=== PATIENT | female | born 1950 | race Caucasian/White ===

== ENCOUNTER → 2019-03-10 | Outpatient (CLI) | payer MEDICARE ==
[~2019-03-10] MED LIST: GABA600 PO; Zestril40 MG
== END | disposition home or self-care (01) ==
LOC: LAB EV 16:19 → LAB SHORT 16:19
DX: N39.0 Urinary tract infection, site not specified (principal)
CPT/HCPCS: 87086

== ENCOUNTER → 2020-02-03 | Outpatient (CLI) | payer MEDICARE ==
[~2020-02-03] MED LIST changes: +CLIMARA1 EACH; +Cymbalta30 MG; +Depakote ER500 MG PO; +TOPI15C
[2020-02-03 10:54] LABS: BASOPHILS ABSOLUTE AUTO 0.06 K/mm3 (0.00-0.23); BASOPHILS PERCENT AUTO 1 % (0-2); EOSINOPHILS ABSOLUTE AUTO 0.21 K/mm3 (0.00-0.68); EOSINOPHILS PERCENT AUTO 2 % (0-6); Hematocrit 38.4 % (33.0-51.0); Hemoglobin 12.6 g/dL (11.5-16.0); IMMATURE GRAN ABSOLUTE AUTO 0.03 K/mm3 (0.00-0.10); IMMATURE GRAN PERCENT AUTO 0 % (0-1); LYMPHOCYTES ABSOLUTE AUTO 1.02 K/mm3 (0.84-5.20); LYMPHOCYTES PERCENT AUTO 12 % (21-46); MONOCYTES ABSOLUTE AUTO 0.67 K/mm3 (0.16-1.47); MONOCYTES PERCENT AUTO 8 % (4-13); Mean Corpuscular HGB 31.6 pg (26.0-34.0); Mean Corpuscular HGB Conc 32.8 g/dL (31.5-36.5); Mean Corpuscular Volume 96 fL (80-100); NEUTROPHILS ABSOLUTE AUTO 6.65 K/mm3 (1.96-9.15); NEUTROPHILS PERCENT AUTO 77 % (41-73); Platelet Count 255 K/mm3 (150-400); RDW Coefficient Variation 13.4 % (11.7-14.2); RDW Standard Deviation 47.2 fL (35.1-46.3); Red Blood Cell Count 3.99 M/mm3 (3.80-5.20); White Blood Cell Count 8.64 K/mm3 (4.00-11.30)
== END ==
LOC: LAB EV 10:47 → LAB SHORT 10:47
PROVIDERS: Family Medicine
DX: K92.1 Melena (principal)
CPT/HCPCS: 85025

== ENCOUNTER 2020-06-20 12:08 | Day surgery (SDC) | payer OTHER ==
[~2020-06-20] VITALS: Ht 154.9 cm; Wt 87.7 kg
[~2020-06-20 12:08] MED LIST changes: +Aspir 8181 MG; +Aspir 8181 MG PO; +CYMBALTA60 M1 PO; +ESTRADIOL2 MG PO; +Gabapentin600 MG PO; +Natrol Alpha 3300 MG; +Natrol Alpha 3300 MG PO; +OMEP20ER; +OMEP20ER PO
--- NOTE | 2020-06-20 12:46 | NUR ---
06/20/20 Bijan6 T[place] Mary 1 TRY RIGHT HAND BLEW
== END 2020-06-20 13:52 | disposition home or self-care (01) ==
LOC: ORSCSDS 12:08
PROVIDERS: Internal Medicine Gastroenterology
PROC: 0DBH8ZX Excision of Cecum, Via Natural or Artificial Opening Endoscopic, Diagnostic (ICD-10-PCS; principal; 2020-06-20 13:30)
DX: K62.5 Hemorrhage of anus and rectum (principal); K59.1 Functional diarrhea; D12.0 Benign neoplasm of cecum; K57.30 Diverticulosis of large intestine without perforation or abscess without bleeding; K64.8 Other hemorrhoids; G47.30 Sleep apnea, unspecified; G47.33 Obstructive sleep apnea (adult) (pediatric); K21.9 Gastro-esophageal reflux disease without esophagitis; E66.01 Morbid (severe) obesity due to excess calories; Z68.36 Body mass index [BMI] 36.0-36.9, adult; Z79.82 Long term (current) use of aspirin; Z79.899 Other long term (current) drug therapy
CPT/HCPCS: 88305; J2704; J7120

== ENCOUNTER 2020-11-01 11:36 | Emergency (ER) | payer OTHER ==
[~2020-11-01] VITALS: Ht 152.4 cm; Wt 86.6 kg
[2020-11-01 14:09] LABS: BASOPHILS ABSOLUTE AUTO 0.07 K/mm3 (0.00-0.23); BASOPHILS PERCENT AUTO 1 % (0-2); EOSINOPHILS ABSOLUTE AUTO 0.06 K/mm3 (0.00-0.68); EOSINOPHILS PERCENT AUTO 1 % (0-6); Hematocrit 45.7 % (33.0-51.0); Hemoglobin 14.7 g/dL (11.5-16.0); IMMATURE GRAN ABSOLUTE AUTO 0.07 K/mm3 (0.00-0.10); IMMATURE GRAN PERCENT AUTO 1 % (0-1); LYMPHOCYTES ABSOLUTE AUTO 0.64 K/mm3 (0.84-5.20); LYMPHOCYTES PERCENT AUTO 5 % (21-46); MONOCYTES ABSOLUTE AUTO 0.75 K/mm3 (0.16-1.47); MONOCYTES PERCENT AUTO 6 % (4-13); Mean Corpuscular HGB 29.6 pg (26.0-34.0); Mean Corpuscular HGB Conc 32.2 g/dL (31.5-36.5); Mean Corpuscular Volume 92 fL (80-100); Mean Platelet Volume 10.4 fL (9.1-12.4); NEUTROPHILS ABSOLUTE AUTO 11.03 K/mm3 (1.96-9.15); NEUTROPHILS PERCENT AUTO 87 % (41-73); Platelet Count 220 K/mm3 (150-400); RDW Coefficient Variation 13.4 % (11.7-14.2); RDW Standard Deviation 45.7 fL (35.1-46.3); Red Blood Cell Count 4.97 M/mm3 (3.80-5.20); White Blood Cell Count 12.62 K/mm3 (4.00-11.30)
[2020-11-01 14:25] LABS: Source, Urine Voided
[2020-11-01 14:26] LABS: Alanine Aminotransfer (ALT/SGP 23 U/L (12-78); Albumin, Blood 3.9 g/dL (3.4-5.0); Alk Phos 103 U/L (50-136); Anion Gap 8 mmol/L (6-16); Aspartate Aminotrans (AST/SGOT 13 U/L (12-37); Bilirubin, Total 0.6 mg/dL (0.1-1.0); Blood Urea Nitrogen 19 mg/dL (8-24); Bun/Creatinine Ratio 20.8 (12.0-20.0); CO2, Blood 24 mmol/L (21-32); Calcium, Blood 9.8 mg/dL (8.5-10.1); Chloride, Blood 106 mmol/L (98-108); Creatinine, Blood 0.92 mg/dL (0.40-1.00); Globulin, Blood 4.1 g/dL (2.2-4.0); Glomerular Filtration Rate >60 (60-); Glucose, Blood 115 mg/dL (70-99); Potassium, Blood 4.6 mmol/L (3.5-5.5); Sodium, Blood 138 mmol/L (136-145)
[2020-11-01 14:43] LABS: Appearance, Urine Hazy (Clear); Bilirubin, Urine Neg (Neg); Blood, Urine Neg (Neg); Color, Urine Yellow (P-Yellow); Glucose Qualitative, Urine Neg (Neg); Ketones, Urine 1+ (Neg); Leukocyte Esterase, Urine Neg (Neg); Nitrite, Urine Neg (Neg); Protein, Urine Neg (Neg); Specific Gravity, Urine 1.015 (1.003-1.022); Urobilinogen, Urine NORM (Normal)
[2020-11-01 15:00] LABS: Bacteria Many /hpf; Squamous Epithelial Cells Mod /hpf (Few)
[2020-11-01] MEDS ORDERED: LOPE2C PO (15:52)
[2020-11-01] MEDS ORDERED: ONDA4ODT MM (15:52)
== END 2020-11-01 16:15 | disposition home or self-care (01) ==
LOC: ER 11:36
PROVIDERS: Emergency Medicine
DX: K31.84 Gastroparesis (principal); I10 Essential (primary) hypertension; Z79.899 Other long term (current) drug therapy
CPT/HCPCS: 36415; 80053; 81001; 83690; 85025; 87086; 93005; 93010; 96374; 99284-25; A9270; J2405; J7030

== ENCOUNTER 2021-03-05 11:14 | Day surgery (SDC) | payer OTHER ==
[~2021-03-05] VITALS: Ht 154.9 cm; Wt 85.2 kg
[~2021-03-05 11:14] MED LIST changes: +ATEN25 PO; +CELE200 PO; +LISI20 PO; +LOPE2C PO; +MELO7.5 PO; +ONDA4ODT MM
--- NOTE | 2021-03-05 18:06 | NUR ---
SHIFT SUMMARY PT A&OX4, VSS/2LNC, S/P L TKA, AQUACEL/ACEWRAP DRY/INTACT, WIGGLES TOES/MOVES FEET, DENIES N&T. PAIN MANAGED WITH 5 MG OXY AND TORADOL. ELYSE PO. AWAITING POST OP VOID. IV RFA, IVF @ 70 MLS/HR. WILL REPORT TO ONCOMING ROXANNA LEE.
[2021-03-06 03:48] LABS: BASOPHILS ABSOLUTE AUTO 0.01 K/mm3 (0.00-0.23); BASOPHILS PERCENT AUTO 0 % (0-2); EOSINOPHILS PERCENT AUTO 0 % (0-6); Hematocrit 32.9 % (33.0-51.0); Hemoglobin 10.4 g/dL (11.5-16.0); IMMATURE GRAN ABSOLUTE AUTO 0.04 K/mm3 (0.00-0.10); IMMATURE GRAN PERCENT AUTO 0 % (0-1); LYMPHOCYTES ABSOLUTE AUTO 0.82 K/mm3 (0.84-5.20); LYMPHOCYTES PERCENT AUTO 8 % (21-46); MONOCYTES ABSOLUTE AUTO 0.38 K/mm3 (0.16-1.47); MONOCYTES PERCENT AUTO 4 % (4-13); Mean Corpuscular HGB 29.5 pg (26.0-34.0); Mean Corpuscular HGB Conc 31.6 g/dL (31.5-36.5); Mean Corpuscular Volume 94 fL (80-100); Mean Platelet Volume 9.7 fL (9.1-12.4); NEUTROPHILS ABSOLUTE AUTO 8.51 K/mm3 (1.96-9.15); NEUTROPHILS PERCENT AUTO 87 % (41-73); Platelet Count 231 K/mm3 (150-400); RDW Coefficient Variation 12.7 % (11.7-14.2); RDW Standard Deviation 43.7 fL (35.1-46.3); Red Blood Cell Count 3.52 M/mm3 (3.80-5.20); White Blood Cell Count 9.76 K/mm3 (4.00-11.30)
[2021-03-06 04:10] LABS: Anion Gap 4 mmol/L (6-16); Blood Urea Nitrogen 23 mg/dL (8-24); Bun/Creatinine Ratio 27.3 (12.0-20.0); CO2, Blood 27 mmol/L (21-32); Calcium, Blood 8.9 mg/dL (8.5-10.1); Chloride, Blood 103 mmol/L (98-108); Creatinine, Blood 0.84 mg/dL (0.40-1.00); Glomerular Filtration Rate >60 (60-); Glucose, Blood 131 mg/dL (70-99); Sodium, Blood 134 mmol/L (136-145)
--- NOTE | 2021-03-06 04:24 | NUR ---
SHIFT SUMMARY PT A&OX4 AND IN PLEASENT MOOD T/O SHIFT. POD1 L TKA. PAIN MANAGED PER EMAR AND POLAR PACK IN PLACE. KATHIA BANDAGE AND AQUACEL CDI. PPP. VS STABLE. TOLERATING PO INTAKE AND VOIDING WELL. VERY STEADY GAIT W/ AMBULATION. CALL LIGHT W/IN REACH. SCD'S IN PLACE.
[2021-03-06] MEDS ORDERED: Percocet 5-3251 EACH PO (08:42)
[2021-03-06] MEDS ORDERED: Aspir 8181 MG PO (08:43)
--- NOTE | 2021-03-06 12:05 | NUR ---
DISCHARGE CLEARED THERAPY, PAIN WELL MANAGED, EATING/DRINKING/VOIDING WELL. SCRIPT, POLLAR PACK, & DRSGS SENT w/ PT. ESCORTED OUT VIA W/C TO FRIEND WAITING IN CAR.
--- NOTE | 2021-03-07 09:03 | NUR ---
03/07/21 0903 Nadira Shell VERIFICATIONS: EDIT CHART.
== END 2021-03-06 12:10 | disposition home or self-care (01) ==
LOC: ORSCMMR 11:14 → SURS 16:05 → ORSCMMR 03-06 12:10
PROVIDERS: Orthopaedic Surgery
PROC: 0SRD0JA Replacement of Left Knee Joint with Synthetic Substitute, Uncemented, Open Approach (ICD-10-PCS; principal; 2021-03-05 12:45)
PROC: 8E0Y0CZ Robotic Assisted Procedure of Lower Extremity, Open Approach (ICD-10-PCS; principal; 2021-03-05 12:45)
DX: M17.12 Unilateral primary osteoarthritis, left knee (principal); I10 Essential (primary) hypertension; G47.33 Obstructive sleep apnea (adult) (pediatric); E66.9 Obesity, unspecified; I25.2 Old myocardial infarction; Z68.35 Body mass index [BMI] 35.0-35.9, adult; Z79.899 Other long term (current) drug therapy; Z79.82 Long term (current) use of aspirin
CPT/HCPCS: 27447; S2900; 36415; 73560-LT; 80048; 85025; 97110; 97116; 97161; A9270; C1776; J0171; J0690; J0735; J1100; J1885; J2250; J2370; J2405; J2704; J2795; J3010; J7120

== ENCOUNTER 2024-07-14 10:41 | Emergency (ER) | payer OTHER ==
[~2024-07-14] VITALS: Ht 152.4 cm; Wt 85.7 kg
[~2024-07-14 10:41] MED LIST changes: +Percocet 5-3251 EACH PO
[2024-07-14 11:06] LABS: BASOPHILS ABSOLUTE AUTO 0.04 K/mm3 (0.00-0.23); BASOPHILS PERCENT AUTO 0 % (0-2); EOSINOPHILS ABSOLUTE AUTO 0.03 K/mm3 (0.00-0.68); EOSINOPHILS PERCENT AUTO 0 % (0-6); Hematocrit 39.4 % (33.0-51.0); Hemoglobin 13.1 g/dL (11.5-16.0); IMMATURE GRAN ABSOLUTE AUTO 0.04 K/mm3 (0.00-0.10); IMMATURE GRAN PERCENT AUTO 0 % (0-1); LYMPHOCYTES ABSOLUTE AUTO 0.49 K/mm3 (0.84-5.20); LYMPHOCYTES PERCENT AUTO 5 % (21-46); MONOCYTES ABSOLUTE AUTO 0.56 K/mm3 (0.16-1.47); MONOCYTES PERCENT AUTO 5 % (4-13); Mean Corpuscular HGB 31.6 pg (26.0-34.0); Mean Corpuscular HGB Conc 33.2 g/dL (31.5-36.5); Mean Corpuscular Volume 95 fL (80-100); Mean Platelet Volume 10.1 fL (9.1-12.4); NEUTROPHILS ABSOLUTE AUTO 9.57 K/mm3 (1.96-9.15); NEUTROPHILS PERCENT AUTO 89 % (41-73); Platelet Count 202 K/mm3 (150-400); RDW Coefficient Variation 13.1 % (11.7-14.2); RDW Standard Deviation 45.3 fL (35.1-46.3); Red Blood Cell Count 4.14 M/mm3 (3.80-5.20); White Blood Cell Count 10.73 K/mm3 (4.00-11.30)
[2024-07-14 11:15] VITALS: BP 136/71
[2024-07-14] MEDS ORDERED: TRAZ50 PO (11:23)
[2024-07-14 11:30] LABS: Albumin, Blood 3.2 g/dL (3.4-5.0); Albumin/Globulin Ratio 0.9 (0.8-1.8); Bilirubin, Total 0.7 mg/dL (0.1-1.0); Creatinine, Blood 0.9 mg/dL (0.40-1.00); Globulin, Blood 3.4 g/dL (2.2-4.0); Magnesium, Blood 1.4 mg/dL (1.6-2.4); Potassium, Blood 4.1 mmol/L (3.5-5.5); Total Protein, Blood 6.6 g/dL (6.4-8.2)
[2024-07-14] MEDS ORDERED: Magnesium Sulf 2 GM/Water 50ML 50 ML IV ONE (11:45)
[2024-07-14] MEDS ORDERED: CALCIUM GLUC IN NACL, ISO-OSM 100 ML IV ONE (11:50)
[2024-07-14] MEDS ORDERED: Ketorolac Tromethamine 30mg Vial IV ONE (15:15)
[2024-07-14] MEDS ORDERED: Acetaminophen 500 MG Tab PO ONE (15:15)
== END 2024-07-14 16:40 | disposition home or self-care (01) ==
LOC: ER 10:41
PROVIDERS: Student in an Organized Health Care Education/Training Program
DX: R55 Syncope and collapse (principal); R91.8 Other nonspecific abnormal finding of lung field; I10 Essential (primary) hypertension; Z88.5 Allergy status to narcotic agent; Z79.899 Other long term (current) drug therapy; Z79.82 Long term (current) use of aspirin
CPT/HCPCS: 71046; 80053; 83735; 83880; 84484; 85025; A9270; J0612; J1885; J3475

== ENCOUNTER 2025-02-09 13:26 | Inpatient (IN) | payer OTHER ==
[~2025-02-09] VITALS: Ht 152.4 cm; Wt 82.8 kg
[~2025-02-09 13:26] MED LIST changes: +TRAZ50 PO
[2025-02-09] MEDS ORDERED: NS 1,000 ML IV SCH ×2 (14:20→20:20)
[2025-02-09 14:59] LABS: BASOPHILS ABSOLUTE AUTO 0.06 K/mm3 (0.00-0.23); BASOPHILS PERCENT AUTO 1 % (0-2); EOSINOPHILS ABSOLUTE AUTO 0.16 K/mm3 (0.00-0.68); EOSINOPHILS PERCENT AUTO 1 % (0-6); Hematocrit 46.7 % (33.0-51.0); Hemoglobin 15.9 g/dL (11.5-16.0); IMMATURE GRAN ABSOLUTE AUTO 0.06 K/mm3 (0.00-0.10); IMMATURE GRAN PERCENT AUTO 1 % (0-1); LYMPHOCYTES ABSOLUTE AUTO 1.47 K/mm3 (0.84-5.20); LYMPHOCYTES PERCENT AUTO 12 % (21-46); MONOCYTES ABSOLUTE AUTO 1.32 K/mm3 (0.16-1.47); MONOCYTES PERCENT AUTO 10 % (4-13); Mean Corpuscular HGB Conc 34.0 g/dL (31.5-36.5); Mean Corpuscular Volume 90 fL (80-100); NEUTROPHILS ABSOLUTE AUTO 9.72 K/mm3 (1.96-9.15); NEUTROPHILS PERCENT AUTO 76 % (41-73); NRBC ABSOLUTE 0.00 K/mm3 (0.00-0.02); NRBC Auto 0.0 /100 WBC (0.0-0.2); Platelet Count 340 K/mm3 (150-400); RDW Coefficient Variation 13.9 % (11.7-14.2); RDW Standard Deviation 45.7 fL (35.1-46.3)
[2025-02-09 15:08] LABS: Source, Urine Clean Catch
[2025-02-09 15:13] LABS: Bilirubin, Urine Neg (Neg); Color, Urine Yellow (P-Yellow); Glucose Qualitative, Urine Neg (Neg); Ketones, Urine 3+ (Neg); Leukocyte Esterase, Urine 1+ (Neg); Protein, Urine 4+ (Neg); Specific Gravity, Urine 1.020 (1.003-1.022); Urobilinogen, Urine 1+ (Normal)
[2025-02-09 15:19] LABS: White Blood Cells, Urine 0-2 /hpf (0-5); Yeast/Fungi Urine Rare /hpf
[2025-02-09 15:27] LABS: Alanine Aminotransfer (ALT/SGP 21.0 U/L (12-78); Albumin, Blood 3.1 g/dL (3.4-5.0); Albumin/Globulin Ratio 0.6 (0.8-1.8); Anion Gap 10.0 mmol/L (3-11); Aspartate Aminotrans (AST/SGOT 30.0 U/L (12-37); Bilirubin, Total 0.9 mg/dL (0.1-1.0); Blood Urea Nitrogen 20.0 mg/dL (8-24); CO2, Blood 28.0 mmol/L (21-32); Calcium, Blood 9.7 mg/dL (8.5-10.1); Chloride, Blood 103.0 mmol/L (98-108); Creatinine, Blood 0.82 mg/dL (0.40-1.00); Globulin, Blood 5.2 g/dL (2.2-4.0); Glucose, Blood 129.0 mg/dL (70-99); Potassium, Blood 3.5 mmol/L (3.5-5.5); Sodium, Blood 137.0 mmol/L (136-145); Total Protein, Blood 8.3 g/dL (6.4-8.2)
[2025-02-09 15:48] LABS: Influenza A, PCR NEGATIVE (NEGATIVE); Influenza B, PCR NEGATIVE (NEGATIVE); Resp Syncytial Virus, PCR NEGATIVE (NEGATIVE); SARS-Cov-2 (COVID-19) PCR, MMC NEGATIVE (NEGATIVE)
[2025-02-09] MEDS ORDERED: Acetaminophen/Aspirin/Caffeine 250/250/65 MG PO ONE (16:20)
[2025-02-09] MEDS ORDERED: PREG150 PO ×2 (16:26→16:28)
[2025-02-09] MEDS ORDERED: METOPROLOL SUCC25 MG PO (16:26)
[2025-02-09] MEDS ORDERED: ROSUVASTATIN CA20 MG PO (16:29)
[2025-02-09] MEDS ORDERED: CefTRIAXone Sodium 1,000 MG in NS 100 ML IV ONE (16:45)
[2025-02-09] MEDS ORDERED: FLU VACC TS2025(65UP)/MF59C/PF 45 MCG/0.5 ML SYRINGE IM SCH (20:20)
[2025-02-09] MEDS ORDERED: Albuterol 2.5 MG/3 ML VIAL INH PRN (20:20)
[2025-02-09] MEDS ORDERED: Lactobacil 2-S.Thermo-Bifido 1 1 Cap PO SCH (21:00)
[2025-02-09 22:38] VITALS: BP 154/101
[2025-02-09] MEDS ORDERED: Acetaminophen/Aspirin/Caffeine 250/250/65 MG PO SCH (23:00)
--- NOTE | 2025-02-10 00:48 | NUR ---
ADMIT NOTE PT ADMIT FROM ED FOR LEFT LUNG PNEUMONIA. PT ORIENTED TO ROOM, CALL LIGHT, SAFETY AND FALL PRECAUTIONS. PT A&OX4, VSS. ARRIVED ON UNIT W/ 2L NC FOR C/O SOB. PT PLACED ON TELE PER ORDERS. SINUS TACH AT 118. PT ALSO ARRIVED W/ PUREWICK IN PLACE FOR INCONT. NO URINE OUTPUT OBSERVED YET AT THIS TIME. L FOOT SCAB PRESENT ON ADMIN. PT STATES SHE NORMALLY WALKS AROUND W/O SHOES ON. PICS TAKEN AND PLACED IN CHART. ON BEDREST W/ 1PA TO BSC AT THE MOMENT D/T SOB, O2 NEEDS, AND PT STATING SHE STARTS TO GET DIZZY IF SHE WALKS TO THE BATHROOM. BED RAILS UP X 2, BED IN LOWEST POSITION, BED WHEELS LOCKED, PERSONAL BELONGINGS AND CALL LIGHT WITHIN REACH FOR SAFETY.
[2025-02-10 05:02] VITALS: BP 174/89
[2025-02-10 05:32] VITALS: BP 156/85
[2025-02-10 06:44] LABS: BASOPHILS ABSOLUTE AUTO 0.07 K/mm3 (0.00-0.23); BASOPHILS PERCENT AUTO 1 % (0-2); EOSINOPHILS ABSOLUTE AUTO 0.42 K/mm3 (0.00-0.68); EOSINOPHILS PERCENT AUTO 3 % (0-6); Hematocrit 42.7 % (33.0-51.0); Hemoglobin 13.9 g/dL (11.5-16.0); IMMATURE GRAN ABSOLUTE AUTO 0.07 K/mm3 (0.00-0.10); IMMATURE GRAN PERCENT AUTO 1 % (0-1); LYMPHOCYTES ABSOLUTE AUTO 1.74 K/mm3 (0.84-5.20); LYMPHOCYTES PERCENT AUTO 14 % (21-46); MONOCYTES ABSOLUTE AUTO 1.73 K/mm3 (0.16-1.47); MONOCYTES PERCENT AUTO 14 % (4-13); Mean Corpuscular HGB Conc 32.6 g/dL (31.5-36.5); Mean Corpuscular Volume 93 fL (80-100); NEUTROPHILS ABSOLUTE AUTO 8.61 K/mm3 (1.96-9.15); NEUTROPHILS PERCENT AUTO 68 % (41-73); NRBC ABSOLUTE 0.00 K/mm3 (0.00-0.02); NRBC Auto 0.0 /100 WBC (0.0-0.2); Platelet Count 306 K/mm3 (150-400); RDW Coefficient Variation 14.1 % (11.7-14.2); RDW Standard Deviation 49.0 fL (35.1-46.3)
[2025-02-10 07:31] LABS: Alanine Aminotransfer (ALT/SGP 27.0 U/L (12-78); Albumin, Blood 2.6 g/dL (3.4-5.0); Albumin/Globulin Ratio 0.6 (0.8-1.8); Anion Gap 11.0 mmol/L (3-11); Aspartate Aminotrans (AST/SGOT 35.0 U/L (12-37); Bilirubin, Total 0.9 mg/dL (0.1-1.0); Blood Urea Nitrogen 22.0 mg/dL (8-24); CO2, Blood 25.0 mmol/L (21-32); Calcium, Blood 8.7 mg/dL (8.5-10.1); Chloride, Blood 107.0 mmol/L (98-108); Creatinine, Blood 0.73 mg/dL (0.40-1.00); Globulin, Blood 4.5 g/dL (2.2-4.0); Glucose, Blood 121.0 mg/dL (70-99); Potassium, Blood 3.5 mmol/L (3.5-5.5); Sodium, Blood 139.0 mmol/L (136-145); Total Protein, Blood 7.1 g/dL (6.4-8.2)
[2025-02-10 07:59] VITALS: BP 162/93
[2025-02-10] MEDS ORDERED: NS 250 ML IV PRN (08:00)
--- NOTE | 2025-02-10 08:26 | NUR ---
pt laying in bed awake a/ox3-4, cooperative with care, seems anxious, breathing fast and shallow, encouraged her to slow down, when she does slow it sats are above 90%, when breathing fast drops to 88%, occ, nonproductive cough, currently on 3 liters 02 via n/c, lungs are clear in upper krishna, a bit course dim in bases, hrr, tele in place running st in the 120's per monitor, see strip, no edema noted, ppp+1, cap refill<3 sec, vs stable, afebrile, piv to rac site is clear and patent, btx4, abd flat soft nontender, voids via purwick at this time, skin pale, c/w/d, clau, states she can't get herself positioned in bed, so was repositioned for more comfort, took po meds without diff, call light in reach.
[2025-02-10] MEDS ORDERED: CefTRIAXone Sodium 1,000 MG in NS 100 ML IV SCH (09:00)
[2025-02-10] MEDS ORDERED: DULoxetine HCL 30 MG Cap DR PO SCH (09:00)
[2025-02-10] MEDS ORDERED: Enoxaparin 40 MG/0.4 ML SYR SC SCH (09:00)
[2025-02-10 16:41] VITALS: BP 153/87
[2025-02-10] MEDS ORDERED: Furosemide 10 MG / ML 2ML Vial IV ONE (16:55)
--- NOTE | 2025-02-10 16:55 | NUR ---
SHIFT SUMMARY ASSUMED CARE OF PATIENT AT APPROX. 1300. PATIENT A&OX4. PATIENT IS A 1P TO [facility] [place]. PATIENT DENIES PAIN, NAUSEA, AND SHORTNESS OF BREATH AT REST. PATIENT REPORTS SHORTNESS OF BREATH WITH ACTIVITY. PATIENT ON 2L, ROOM AIR IS BASELINE. PATIENT ON TELE, ST AT 110. PATIENT SLEEPING A LOT THIS SHIFT WITH OVERALL NOT FEELING WELL. PATIENT DECLINED BREAKFAST. AROUND 1630, PATIENT UNABLE TO URINATE. BLADDER SCAN SHOWED 480. RESPIRATIONS ALSO ELEVATED AT 28. PATIENT FEELING SHORT OF BREATH. DR. DANGELO NOTIFIED. NEW ORDERS FOR ADKINS AND ONE TIME DOSE OF 20MG IV LASIX. ADKINS PLACED. PATIENT IS PLEASANT AND COOPERATIVE WITH CARE.
[2025-02-10 19:12] VITALS: BP 130/84
[2025-02-10 23:58] VITALS: BP 153/94
[2025-02-11 04:48] VITALS: BP 163/97
--- NOTE | 2025-02-11 04:59 | NUR ---
SHIFT SUMMARY NO ACUTE CHANGES THIS SHIFT, SLEPT T/O MOST OF SHIFT, WOKE EARLY C/O 02/24 MIGRAINE, MEDICATED X1, BEDRESTING @ THIS TIME, CALL LIGHT IN REACH, WILL CONT TO MONITOR.
[2025-02-11 05:24] LABS: BASOPHILS ABSOLUTE AUTO 0.06 K/mm3 (0.00-0.23); BASOPHILS PERCENT AUTO 1 % (0-2); EOSINOPHILS ABSOLUTE AUTO 0.69 K/mm3 (0.00-0.68); EOSINOPHILS PERCENT AUTO 7 % (0-6); Hematocrit 42.8 % (33.0-51.0); Hemoglobin 13.6 g/dL (11.5-16.0); IMMATURE GRAN ABSOLUTE AUTO 0.04 K/mm3 (0.00-0.10); IMMATURE GRAN PERCENT AUTO 0 % (0-1); LYMPHOCYTES ABSOLUTE AUTO 1.39 K/mm3 (0.84-5.20); LYMPHOCYTES PERCENT AUTO 14 % (21-46); MONOCYTES ABSOLUTE AUTO 0.97 K/mm3 (0.16-1.47); MONOCYTES PERCENT AUTO 10 % (4-13); Mean Corpuscular HGB Conc 31.8 g/dL (31.5-36.5); Mean Corpuscular Volume 95 fL (80-100); NEUTROPHILS ABSOLUTE AUTO 6.67 K/mm3 (1.96-9.15); NEUTROPHILS PERCENT AUTO 68 % (41-73); NRBC ABSOLUTE 0.00 K/mm3 (0.00-0.02); NRBC Auto 0.0 /100 WBC (0.0-0.2); Platelet Count 290 K/mm3 (150-400); RDW Coefficient Variation 14.1 % (11.7-14.2); RDW Standard Deviation 49.8 fL (35.1-46.3)
[2025-02-11 05:56] LABS: Alanine Aminotransfer (ALT/SGP 30.0 U/L (12-78); Albumin, Blood 2.4 g/dL (3.4-5.0); Albumin/Globulin Ratio 0.5 (0.8-1.8); Anion Gap 10.0 mmol/L (3-11); Aspartate Aminotrans (AST/SGOT 42.0 U/L (12-37); Bilirubin, Total 0.9 mg/dL (0.1-1.0); Blood Urea Nitrogen 22.0 mg/dL (8-24); CO2, Blood 25.0 mmol/L (21-32); Calcium, Blood 9.3 mg/dL (8.5-10.1); Chloride, Blood 106.0 mmol/L (98-108); Creatinine, Blood 0.7 mg/dL (0.40-1.00); Globulin, Blood 4.7 g/dL (2.2-4.0); Glucose, Blood 126.0 mg/dL (70-99); Potassium, Blood 4.2 mmol/L (3.5-5.5); Sodium, Blood 137.0 mmol/L (136-145); Total Protein, Blood 7.1 g/dL (6.4-8.2)
[2025-02-11 07:16] VITALS: BP 148/91
--- NOTE | 2025-02-11 09:00 | NUR ---
pt laying in bed awake, eating breakfast, a/ox4, pleasant and cooperative with care, follows commands well, looks like she feels better than yesterday, states she's feeling better, denies pain, lungs are clear a bit dim in bases, resp even and unlabored, no cough noted, currently on 3 liters 02 via n/c, hrr, tele in place running st per monitor, see strip, one teens, no edema noted, ppp +1, cap refill<3 sec, vs stable, afebrile, piv to lfa site is clear and patent, btx4, abd flat soft nontender, ch cath draining clear yellow urine for retention, skin c/w/d, jacek olguin, call light in reach.
[2025-02-11 11:30] VITALS: BP 135/93
[2025-02-11 15:53] VITALS: BP 127/77
--- NOTE | 2025-02-11 18:36 | NUR ---
got pt up to chair for dinner, she states she has a bad h/a, medicated per emar for that, was able to stand and transfer with minimal help, no further changes this shift, call light in reach.
[2025-02-11 19:48] VITALS: BP 116/82
[2025-02-11 23:48] VITALS: BP 125/83
--- NOTE | 2025-02-12 05:17 | NUR ---
SHIFT SUMMARY NO ACUTE CHANGES THIS SHIFT, DENIES PAIN, TITRATED 02 TO 2L-MAINTAINED SATS GREATER THAN 90% T/O THE SHIFT, APPEARS TO BE SLEEPING AT THIS TIME, CALL LIGHT IN REACH, WILL CONT TO MONITOR UNTIL REPORT GIVEN TO ONCOMING NURSE.
[2025-02-12 06:05] LABS: BASOPHILS ABSOLUTE AUTO 0.08 K/mm3 (0.00-0.23); BASOPHILS PERCENT AUTO 1 % (0-2); EOSINOPHILS ABSOLUTE AUTO 0.89 K/mm3 (0.00-0.68); EOSINOPHILS PERCENT AUTO 11 % (0-6); Hematocrit 37.5 % (33.0-51.0); Hemoglobin 12.0 g/dL (11.5-16.0); IMMATURE GRAN ABSOLUTE AUTO 0.02 K/mm3 (0.00-0.10); IMMATURE GRAN PERCENT AUTO 0 % (0-1); LYMPHOCYTES ABSOLUTE AUTO 1.55 K/mm3 (0.84-5.20); LYMPHOCYTES PERCENT AUTO 19 % (21-46); MONOCYTES ABSOLUTE AUTO 0.74 K/mm3 (0.16-1.47); MONOCYTES PERCENT AUTO 9 % (4-13); Mean Corpuscular HGB Conc 32.0 g/dL (31.5-36.5); Mean Corpuscular Volume 94 fL (80-100); NEUTROPHILS ABSOLUTE AUTO 4.76 K/mm3 (1.96-9.15); NEUTROPHILS PERCENT AUTO 59 % (41-73); NRBC ABSOLUTE 0.00 K/mm3 (0.00-0.02); NRBC Auto 0.0 /100 WBC (0.0-0.2); Platelet Count 316 K/mm3 (150-400); RDW Coefficient Variation 13.9 % (11.7-14.2); RDW Standard Deviation 48.4 fL (35.1-46.3)
[2025-02-12 06:39] LABS: Alanine Aminotransfer (ALT/SGP 36.0 U/L (12-78); Albumin, Blood 2.3 g/dL (3.4-5.0); Albumin/Globulin Ratio 0.5 (0.8-1.8); Anion Gap 7.0 mmol/L (3-11); Aspartate Aminotrans (AST/SGOT 32.0 U/L (12-37); Bilirubin, Total 0.6 mg/dL (0.1-1.0); Blood Urea Nitrogen 22.0 mg/dL (8-24); CO2, Blood 29.0 mmol/L (21-32); Calcium, Blood 9.0 mg/dL (8.5-10.1); Chloride, Blood 106.0 mmol/L (98-108); Creatinine, Blood 0.7 mg/dL (0.40-1.00); Globulin, Blood 4.3 g/dL (2.2-4.0); Glucose, Blood 120.0 mg/dL (70-99); Potassium, Blood 3.5 mmol/L (3.5-5.5); Sodium, Blood 138.0 mmol/L (136-145); Total Protein, Blood 6.6 g/dL (6.4-8.2)
[2025-02-12 07:13] VITALS: BP 149/78
--- NOTE | 2025-02-12 08:02 | NUR ---
pt resting quietly in bed, states she slept last night, looks better today, a/ox4, pleasant and cooperative with care, follows commands well, lungs are clear in upper krishna, course in bases, was on 3 liters o2 via n/c, has a nonproductive cough when sat her up, hrr, no edema noted, ppp+2, cap refill<3 sec, vs stable, afebrile, piv to lac site is clear and patent, btx4, abd flat soft nontender, voids via ch but will remove this am, skin c/w/d, jacek olguin, call light in reach.
[2025-02-12] MEDS ORDERED: TRAZ50 PO (15:01)
[2025-02-12] MEDS ORDERED: ASPIRIN-ACETAM1 EAC1 PO (15:01)
[2025-02-12] MEDS ORDERED: AMOCLA875 PO (15:02)
[2025-02-12] MEDS ORDERED: Crestor40 MG PO (15:02)
--- NOTE | 2025-02-12 15:18 | NUR ---
pt was checked on room air, during ambulation, sats remain 94 - 96% on r/a, she is being discharged to home, faxed new meds to helen, went over discharge instructions with her, she verbalized understanding, piv removed intact, waiting on ride home.
[2025-02-12 15:55] VITALS: BP 126/74
--- NOTE | 2025-02-12 18:12 | NUR ---
pt has been discharged to home, was unalbe to secure a ride home or have the house opened to her, multiple phone calls were made with no answer, will go home in am. call light in reach.
[2025-02-12 19:08] VITALS: BP 125/74
[2025-02-12 23:32] VITALS: BP 141/78
[2025-02-13 02:54] VITALS: BP 154/78
--- NOTE | 2025-02-13 04:15 | NUR ---
SHIFT SUMMARY NO ACUTE CHANGES THIS SHIFT, MEDICATED X1 FOR C/O MIGRAINE, VSS, APPEARS TO BE SLEEPING AT THIS TIME, CALL LIGHT IN REACH, WILL CONT TO MONITOR UNTIL REPORT GIVEN TO ONCOMING NURSE.
[2025-02-13 05:11] LABS: BASOPHILS ABSOLUTE AUTO 0.06 K/mm3 (0.00-0.23); BASOPHILS PERCENT AUTO 1 % (0-2); EOSINOPHILS ABSOLUTE AUTO 0.76 K/mm3 (0.00-0.68); EOSINOPHILS PERCENT AUTO 9 % (0-6); Hematocrit 39.6 % (33.0-51.0); Hemoglobin 12.7 g/dL (11.5-16.0); IMMATURE GRAN ABSOLUTE AUTO 0.04 K/mm3 (0.00-0.10); IMMATURE GRAN PERCENT AUTO 1 % (0-1); LYMPHOCYTES ABSOLUTE AUTO 1.70 K/mm3 (0.84-5.20); LYMPHOCYTES PERCENT AUTO 20 % (21-46); MONOCYTES ABSOLUTE AUTO 0.67 K/mm3 (0.16-1.47); MONOCYTES PERCENT AUTO 8 % (4-13); Mean Corpuscular HGB Conc 32.1 g/dL (31.5-36.5); Mean Corpuscular Volume 94 fL (80-100); NEUTROPHILS ABSOLUTE AUTO 5.51 K/mm3 (1.96-9.15); NEUTROPHILS PERCENT AUTO 63 % (41-73); NRBC ABSOLUTE 0.00 K/mm3 (0.00-0.02); NRBC Auto 0.0 /100 WBC (0.0-0.2); Platelet Count 415 K/mm3 (150-400); RDW Coefficient Variation 13.9 % (11.7-14.2); RDW Standard Deviation 48.6 fL (35.1-46.3)
[2025-02-13 05:35] LABS: Alanine Aminotransfer (ALT/SGP 39.0 U/L (12-78); Albumin, Blood 2.6 g/dL (3.4-5.0); Albumin/Globulin Ratio 0.6 (0.8-1.8); Anion Gap 8.0 mmol/L (3-11); Aspartate Aminotrans (AST/SGOT 30.0 U/L (12-37); Bilirubin, Total 0.4 mg/dL (0.1-1.0); Blood Urea Nitrogen 21.0 mg/dL (8-24); CO2, Blood 29.0 mmol/L (21-32); Calcium, Blood 9.0 mg/dL (8.5-10.1); Chloride, Blood 105.0 mmol/L (98-108); Creatinine, Blood 0.7 mg/dL (0.40-1.00); Globulin, Blood 4.4 g/dL (2.2-4.0); Glucose, Blood 137.0 mg/dL (70-99); Potassium, Blood 3.8 mmol/L (3.5-5.5); Sodium, Blood 138.0 mmol/L (136-145); Total Protein, Blood 7.0 g/dL (6.4-8.2)
[2025-02-13 07:28] VITALS: BP 152/85
--- NOTE | 2025-02-13 08:58 | NUR ---
NOTE THIS AM MILK RECEIVER TANK TRUCK CHECKED VITALS. IN REPORT NIGHT RN REPORTED PT HAS COLD HANDS SO HARD TO GET READING ON CONT OX. MILK RECEIVER TANK TRUCK REPORTED PT AT HIGH 88% SPO2 ON ROOM AIR WITH WARM HANDS. NIGHT RN APPLIED 1L OF O2. NIGHT RN REPORTED PT SHOULD BE GETTING DISCHARGE TODAY.
--- NOTE | 2025-02-13 10:31 | NUR ---
NOTE RESPIRATORY CARE IN ROOM, DISCUSSED WITH RT THIS AM O2 REQUIREMENTS. PT ON 3L OF O2 CURRENTLY. RT DID SPOT CHECK OF O2 REQUIREMENTS. RT SAID "95% SPO2 ACCURATE WITH 3L OF O2 NEEDS."
--- NOTE | 2025-02-13 12:43 | NUR ---
NOTE PT ON 3L OF O2. DR. NIEVES NOTIFIED AND ROUNDED ON PT, DR. NIEVES NOTFIED ABOUT DELAYING DISCHARGE DUE TO O2 REQUIREMENTS AND SOB. ORDERED CHEST XRAY ONE VIEW AND BD PROTOCOL WITH RT.
[2025-02-13 15:38] VITALS: BP 147/90
[2025-02-13] MEDS ORDERED: Ipratropium/Albuterol SulF 2.5-0.5MG/3 ML Amp INH SCH (18:15)
[2025-02-13] MEDS ORDERED: Albuterol 2.5 MG/3 ML VIAL INH PRN (18:20)
--- NOTE | 2025-02-13 19:44 | NUR ---
SHIFT SUMMARY PT A&OX4. PT ADMITTED DUE TO PNEUMONIA. PLAN WAS FOR PT DO BE D/C TODAY. PT REMAINS ON 3L OF O2. LAST SPO2 WAS 97%, PT REPORTS HEADACHE, PAIN MANAGED PER EMAR. PT REPORTS NO CHEST PAIN/DISCOMFORT, NO PT IS SBA TO TOILET. CHEST XRAY COMPLETE TODAY. DR. NIEVES ORDERED RESPIRATORY PANAL, RESULTS PENDING. RESPIRATORY CARE INVOLVED. BD PROTOCOL W RESPIRATORY INITIATED TODAY. PT CONT OF URINE AND BM. PT NOW GETTING SCHEDULED TREATMENTS WITH RT. PT IN BED, BED IN LOWEST POSITION, CALL LIGHT IN REACH. VSS.
[2025-02-13 20:01] VITALS: BP 129/68
--- NOTE | 2025-02-14 04:04 | NUR ---
SHIFT SUMMARY NO ACUTE EVENTS DURING THIS SHIFT. PT C/O SOB INTERMITTENTLY, REQUESTED BED RUTH INSTEAD OF AMBULATING TO THE RESTROOM OR COMMODE AT HS. O2 SAT'S LOW 90'S ON 2L VIA NC. PT C/O MIGRANE @0400, MEDICATED PER EMAR. BED AT THE LOWEST POSITION, CALL LIGHT W/I REACH. PT IS A/O X4, ABLE TO MAKE HER NEEDS KNOWN AND COOPERATIVE WITH CARE.
[2025-02-14 04:43] VITALS: BP 169/101
[2025-02-14 04:55] LABS: BASOPHILS ABSOLUTE AUTO 0.10 K/mm3 (0.00-0.23); BASOPHILS PERCENT AUTO 1 % (0-2); EOSINOPHILS ABSOLUTE AUTO 0.65 K/mm3 (0.00-0.68); EOSINOPHILS PERCENT AUTO 7 % (0-6); Hematocrit 40.0 % (33.0-51.0); Hemoglobin 13.1 g/dL (11.5-16.0); IMMATURE GRAN ABSOLUTE AUTO 0.03 K/mm3 (0.00-0.10); IMMATURE GRAN PERCENT AUTO 0 % (0-1); LYMPHOCYTES ABSOLUTE AUTO 1.31 K/mm3 (0.84-5.20); LYMPHOCYTES PERCENT AUTO 14 % (21-46); MONOCYTES ABSOLUTE AUTO 0.70 K/mm3 (0.16-1.47); MONOCYTES PERCENT AUTO 8 % (4-13); Mean Corpuscular HGB Conc 32.8 g/dL (31.5-36.5); Mean Corpuscular Volume 93 fL (80-100); NEUTROPHILS ABSOLUTE AUTO 6.30 K/mm3 (1.96-9.15); NEUTROPHILS PERCENT AUTO 69 % (41-73); NRBC ABSOLUTE 0.00 K/mm3 (0.00-0.02); NRBC Auto 0.0 /100 WBC (0.0-0.2); Platelet Count 414 K/mm3 (150-400); RDW Coefficient Variation 13.7 % (11.7-14.2); RDW Standard Deviation 46.9 fL (35.1-46.3)
[2025-02-14 05:22] LABS: Anion Gap 9.0 mmol/L (3-11); Blood Urea Nitrogen 16.0 mg/dL (8-24); CO2, Blood 29.0 mmol/L (21-32); Calcium, Blood 9.2 mg/dL (8.5-10.1); Chloride, Blood 103.0 mmol/L (98-108); Creatinine, Blood 0.66 mg/dL (0.40-1.00); Glucose, Blood 129.0 mg/dL (70-99); Potassium, Blood 3.9 mmol/L (3.5-5.5); Sodium, Blood 137.0 mmol/L (136-145)
[2025-02-14 07:16] VITALS: BP 150/92
[2025-02-14 07:56] LABS: Influenza A/2009-H1 Not Detected (NOT DETECT); SARS-Cov-2 (COVID-19), BioFire Not Detected (NOT DETECT)
[2025-02-14] MEDS ORDERED: Doxycycline Hyclate 100 MG in Dextrose 5% 250 ML IV SCH (13:00)
[2025-02-14 16:05] VITALS: BP 149/84
--- NOTE | 2025-02-14 17:08 | NUR ---
SHIFT SUMMARY PT A&OX4. PT ADMITTED DUE TO PNEUMONIA INVOLVING L LUNG. PT ON 5L OF O2. HUMIDIFIER ATTACHED TO O2. PT HAS CONT PULSE OX ON. SPO2 94%. PT O2 DESATS. PT REPORTS SOME SOB AT REST. PT REPORTS HEADACHE PAIN, PAIN MANAGED PER EMAR. PT REPORTS NO CHEST PAIN/DISCOMFORT. DR. NIEVES ORDERED SOLUMEDERAL. PT SWITCHED TO NEW ANTIBIOTIC. RESPIRATORY PANAL NEGATIVE. PT CONT OF URINE AND BM, PERWICK IN PLACE DUE TO O2 REQUIREMENTS. PT GETS SCHEDULED BREATHING TREATMENTS WITH RT. VSS. SNUFF DRIER SPOKE WITH PT TODAY. PT IN BED, BED IN LOWEST POSITION, CALL LIGHT IN REACH.
[2025-02-14 19:28] VITALS: BP 146/76
[2025-02-15] VITALS (8 sets, daily range): BP systolic 109–174; BP diastolic 57–130
[2025-02-15] MEDS ORDERED: Labetalol HCL 5 MG/ML 4ML Injection (Single Dose) IV ONE (04:55)
[2025-02-15 13:32] LABS: Anion Gap 10.0 mmol/L (3-11); Blood Urea Nitrogen 23.0 mg/dL (8-24); CO2, Blood 28.0 mmol/L (21-32); Calcium, Blood 9.6 mg/dL (8.5-10.1); Chloride, Blood 100.0 mmol/L (98-108); Creatinine, Blood 0.7 mg/dL (0.40-1.00); Glucose, Blood 207.0 mg/dL (70-99); Potassium, Blood 4.4 mmol/L (3.5-5.5); Sodium, Blood 134.0 mmol/L (136-145)
[2025-02-15] MEDS ORDERED: Ipratropium/Albuterol SulF 2.5-0.5MG/3 ML Amp INH PRN (13:50)
--- NOTE | 2025-02-15 20:14 | NUR ---
SUMMARY- PT A/O X4, USES CALL LIGHT. AMBULATES 1-SBA FWW, MOD DYSPNEA WITH ACTIVITY. OXYGEN FROM 6L (SAT 97%) THIS AM DOWN TO 4L/NC, SATS MID 90'S.CONT PULSE OX IN USE. LUNGS COARSE ENTIRE L SIDE EVEN ANT UPPER. CRACKLES IN BILAT BASES. STARTED FLUTTER VALVE. ENC COUGH AND DEEP BREATH, NONPROD COUGH, NO SPUTUM NOTED. BNP 600'S. LASIX 40MG IV THIS PM. NO WHEEZE NOTED, NEBS CHANGED TO PRN. CONSULT PLACED PULRadha LEE, THIS RN CALLED AROUND 1730 TO GIVE CONSULT ON CELL PHONE, WILL EVAL IN THE AM CXR SHOWS WORSTENING PNEUMONIA WITH ADDED SOLUMEDROL MIN IMPROVEMENT. ECHO ORDERED NOT PERFORMED THIS SHIFT. TELE SR 90'S THIS SHIFT. BP STABLE, AFIBRILE. TYLENOL ADMIN X2 THIS SHIFT WITH REPORTED HEADACHE WITH APRTIAL RELEIF. STATES HX OF MIGRAINS, TAKES EXCEDRIN AT HOME REPORTED ALL TO ABBY MCKNIGHT RN.
[2025-02-16 04:00] VITALS: BP 160/89
--- NOTE | 2025-02-16 05:19 | NUR ---
SHIFT SUMMARY PATIENT ALERT AND ORIENTED X4. PATIENT PLEASANT AND RECEPTIVE DURING CARE. PATIENT MAKE NEEDS KNOWN.. COMPLAINT OF HEADACHE PROVIDED ADEQUATE REST AND MEDICATED PER EMAR.NO ACUTE CHANGES DURING THIS SHIFT AND VITAL SIGNS STABLE. PATIENT SLEPT MOST OF THE NIGHT NO SIGNS OF DISTRESS, RESPIRATION EVEN AND UNLABORED. SELF-REPOSITIONED THROUGHOUT THE SHIFT. BED LOCKED AND IN LOWEST POSITION. CALL LIGHT WITHIN REACH.
[2025-02-16 06:05] LABS: BASOPHILS ABSOLUTE AUTO 0.04 K/mm3 (0.00-0.23); BASOPHILS PERCENT AUTO 0 % (0-2); EOSINOPHILS ABSOLUTE AUTO 0.00 K/mm3 (0.00-0.68); EOSINOPHILS PERCENT AUTO 0 % (0-6); Hematocrit 38.2 % (33.0-51.0); Hemoglobin 12.3 g/dL (11.5-16.0); IMMATURE GRAN ABSOLUTE AUTO 0.12 K/mm3 (0.00-0.10); IMMATURE GRAN PERCENT AUTO 1 % (0-1); LYMPHOCYTES ABSOLUTE AUTO 1.29 K/mm3 (0.84-5.20); LYMPHOCYTES PERCENT AUTO 6 % (21-46); MONOCYTES ABSOLUTE AUTO 0.83 K/mm3 (0.16-1.47); MONOCYTES PERCENT AUTO 4 % (4-13); Mean Corpuscular HGB Conc 32.2 g/dL (31.5-36.5); Mean Corpuscular Volume 93 fL (80-100); NEUTROPHILS ABSOLUTE AUTO 18.70 K/mm3 (1.96-9.15); NEUTROPHILS PERCENT AUTO 89 % (41-73); NRBC ABSOLUTE 0.00 K/mm3 (0.00-0.02); NRBC Auto 0.0 /100 WBC (0.0-0.2); Platelet Count 589 K/mm3 (150-400); RDW Coefficient Variation 13.8 % (11.7-14.2); RDW Standard Deviation 46.7 fL (35.1-46.3)
[2025-02-16 06:40] LABS: Anion Gap 9.0 mmol/L (3-11); Blood Urea Nitrogen 28.0 mg/dL (8-24); CO2, Blood 29.0 mmol/L (21-32); Calcium, Blood 9.7 mg/dL (8.5-10.1); Chloride, Blood 98.0 mmol/L (98-108); Creatinine, Blood 0.76 mg/dL (0.40-1.00); Glucose, Blood 163.0 mg/dL (70-99); Potassium, Blood 4.5 mmol/L (3.5-5.5); Sodium, Blood 131.0 mmol/L (136-145)
[2025-02-16 07:21] VITALS: BP 137/69
--- NOTE | 2025-02-16 16:28 | NUR ---
SHIFT SUMMARY PATIENT A&OX4, COOPERATIVE WITH CARE, CALL LIGHT WITHIN REACH, BED ALARM IS ON. PATIENT HAD AN ECHO, CT, AND CARDIOLOGY VISIT TODAY. PATIENT HAS HAD A CONSISTENT MIGRAINE, MEDICATED PER EMAR. NEW IV PLACED. NO DISTRESS NOTED.
--- NOTE | 2025-02-16 18:02 | NUR ---
THIS MICROCHIP SPECIALIST HAS REVIEWED AND AGREES WITH ALL NOTES AND ASSESSMENTS BY ROSA AMES.
[2025-02-16 19:41] VITALS: BP 138/70
[2025-02-16 19:53] VITALS: BP 123/74
--- NOTE | 2025-02-17 04:11 | NUR ---
SHIFT SUMMARY PATIENT HAD NO ACUTE CHANGES. ALERT ORIENTED AND ONE ASSIST TO BSC. DENIES CHEST PAIN, SOB, AND N/V. ON 4L O2 NC AND RA BASELINE. REPORTED ANGEL X ONE AND TYLENOL 650 MG GIVEN PER EMAR. PIV INTACT. IV ABX INFUSED. CALL LIGHT IN REACH. BED IN LOWEST POSITION. WILL CONTINUE TO MONITOR UNTIL DAY SHIFT NURSE ASSUMES CARE.
[2025-02-17 06:00] LABS: BASOPHILS ABSOLUTE AUTO 0.03 K/mm3 (0.00-0.23); BASOPHILS PERCENT AUTO 0 % (0-2); EOSINOPHILS ABSOLUTE AUTO 0.01 K/mm3 (0.00-0.68); EOSINOPHILS PERCENT AUTO 0 % (0-6); Hematocrit 36.7 % (33.0-51.0); Hemoglobin 12.1 g/dL (11.5-16.0); IMMATURE GRAN ABSOLUTE AUTO 0.10 K/mm3 (0.00-0.10); IMMATURE GRAN PERCENT AUTO 1 % (0-1); LYMPHOCYTES ABSOLUTE AUTO 1.16 K/mm3 (0.84-5.20); LYMPHOCYTES PERCENT AUTO 7 % (21-46); MONOCYTES ABSOLUTE AUTO 0.47 K/mm3 (0.16-1.47); MONOCYTES PERCENT AUTO 3 % (4-13); Mean Corpuscular HGB Conc 33.0 g/dL (31.5-36.5); Mean Corpuscular Volume 92 fL (80-100); NEUTROPHILS ABSOLUTE AUTO 14.63 K/mm3 (1.96-9.15); NEUTROPHILS PERCENT AUTO 89 % (41-73); NRBC ABSOLUTE 0.00 K/mm3 (0.00-0.02); NRBC Auto 0.0 /100 WBC (0.0-0.2); Platelet Count 602 K/mm3 (150-400); RDW Coefficient Variation 13.8 % (11.7-14.2); RDW Standard Deviation 46.8 fL (35.1-46.3)
[2025-02-17 07:52] VITALS: BP 146/73
[2025-02-17 12:54] LABS: Anion Gap 9.0 mmol/L (3-11); Blood Urea Nitrogen 32.0 mg/dL (8-24); CO2, Blood 31.0 mmol/L (21-32); Calcium, Blood 9.5 mg/dL (8.5-10.1); Chloride, Blood 97.0 mmol/L (98-108); Creatinine, Blood 0.69 mg/dL (0.40-1.00); Glucose, Blood 167.0 mg/dL (70-99); Potassium, Blood 4.8 mmol/L (3.5-5.5); Sodium, Blood 132.0 mmol/L (136-145)
[2025-02-17] MEDS ORDERED: ALBU2.5V5 (18:57)
[2025-02-17] MEDS ORDERED: Keflex250 MG PO (18:58)
[2025-02-17] MEDS ORDERED: DOXY100 PO (18:59)
[2025-02-17] MEDS ORDERED: JARDIANCE10 MG PO (18:59)
[2025-02-17] MEDS ORDERED: LASIX40 MG PO (19:00)
[2025-02-17] MEDS ORDERED: IPRAT-ALBUT 0.5-3 ML INH (19:01)
[2025-02-17] MEDS ORDERED: VISBIOME 112.51 EACH PO (19:02)
[2025-02-17] MEDS ORDERED: Lopressor 25 mg25 MG PO (19:02)
[2025-02-17 19:53] VITALS: BP 148/83
--- NOTE | 2025-02-17 20:11 | NUR ---
PT HAD A DISCHARGE ORDER FOR TODAY BUT WAS UNABLE TO OBTAIN TRANSPORTATION TO HOME AND NO WAY TO GET INTO HER HOUSE. CALLED AND INFORMED HIM OF THIS AND CALLED MICHELL AT [facility] AND INFORMED HIM
[2025-02-18 03:26] VITALS: BP 149/77
--- NOTE | 2025-02-18 03:49 | NUR ---
SHIFT SUMMARY- SHIFT EVENTS- PT REPORTS HEADACHE UNRELIEVED WITH TYLENOL. TRAMADOL ADMINISTERED PER EMAR WITH SOME RESOLVE OF PAIN. PT REFUSED COLACE, REPORTING NO ISSUES WITH BM. UNCOLLECTED SPUTUM ORDER, PT HAS CUP AT BEDSIDE. PATIENT WAS SUPPOSED TO BE DISCHARGED BUT DID NOT HAVE A RIDE HOME. A&Ox4. PLEASANT AND COOPERATIVE WITH CARE. CALLS APPROPRIATELY AND IS ABLE TO ADVOCATE NEEDS EFFECTIVELY. VSS. BREATHING EVEN AND UNLABORED c 4/l HUMIDIFIED NC. CONTINENT OF BOWEL AND BLADDER; LBM 10/3. STRICT I/O, HAT IN TOILET. TOLERATING DIET. AMBULATES INDEPENDENTLY. MEDS WHOLE c FLUIDS. BED IN LOWEST POSITION, CALL LIGHT WITHIN REACH, ALL NEEDS MET. REPORT TO ONCOMING NURSE.
[2025-02-18 07:43] VITALS: BP 139/74
== END 2025-02-18 10:57 | disposition home health service (06) | DRG 871 ==
LOC: ER 13:26 → MEDS 20:14
PROVIDERS: Emergency Medicine; Family Medicine; ADMIT Internal Medicine
PROC: 3E03329 Introduction of Other Anti-infective into Peripheral Vein, Percutaneous Approach (ICD-10-PCS; principal; 2025-02-09)
PROC: 0T9B70Z Drainage of Bladder with Drainage Device, Via Natural or Artificial Opening (ICD-10-PCS; 2025-02-10)
DX: A41.9 Sepsis, unspecified organism (principal); J18.9 Pneumonia, unspecified organism; J96.01 Acute respiratory failure with hypoxia; I50.20 Unspecified systolic (congestive) heart failure; E87.1 Hypo-osmolality and hyponatremia; K21.9 Gastro-esophageal reflux disease without esophagitis; G47.33 Obstructive sleep apnea (adult) (pediatric); G62.9 Polyneuropathy, unspecified; I11.0 Hypertensive heart disease with heart failure; R73.9 Hyperglycemia, unspecified; D75.839 Thrombocytosis, unspecified; T38.0X5A Adverse effect of glucocorticoids and synthetic analogues, initial encounter; R51.9 Headache, unspecified; Z88.5 Allergy status to narcotic agent; Z79.82 Long term (current) use of aspirin; Z79.891 Long term (current) use of opiate analgesic
CPT/HCPCS: 0202U; 36415; 51701; 71045; 71250; 80048; 80053; 81001; 82947; 83605; 83880; 85025; 87040; 87086; 87637; 93005; 93010; 93306; 94640; 94664; 94761; 94762; 96361; 96365; 96367; 99285-25; A9270; J0456; J0696; J1650; J1938; J2919; J7030; J7050; J7060

== ENCOUNTER → 2025-04-25 | Outpatient (CLI) | payer OTHER ==
[~2025-04-25] MED LIST changes: +ALBU2.5V5; +AMOCLA875 PO; +ASPIRIN-ACETAM1 EAC1 PO; +Crestor40 MG PO; +DOXY100 PO; +IPRAT-ALBUT 0.5-3 ML INH; +JARDIANCE10 MG PO; +Keflex250 MG PO; +LASIX40 MG PO; +Lopressor 25 mg25 MG PO; +METOPROLOL SUCC25 MG PO; +PREG150 PO; +ROSUVASTATIN CA20 MG PO; +VISBIOME 112.51 EACH PO
[2025-04-26 12:51] LABS: Bacterial Vaginosis PCR Negative (NEGATIVE); Candida glabrata-krusei, PCR NOT DETECTED (NOT DETECT)
[2025-04-26 12:54] LABS: Candida Group, PCR DETECTED (NOT DETECT)
== END ==
LOC: LAB 18:04 → LAB SHORT 18:04
PROVIDERS: Physician Assistant
DX: N89.8 Other specified noninflammatory disorders of vagina (principal)
CPT/HCPCS: 81515